=== PATIENT | male | born 2000 | race Caucasian/White ===

== ENCOUNTER 2020-07-26 09:20 | Emergency (ER) | payer BC, OTHER, SELFPAY ==
[2020-07-26] MEDS ORDERED: Ondansetron ODT 4 MG TAB ONE (09:48)
== END 2020-07-26 10:09 | disposition home or self-care (01) ==
LOC: BURERS 09:20
DX: R11.2 Nausea with vomiting, unspecified (principal); R09.89 Other specified symptoms and signs involving the circulatory and respiratory systems; R50.9 Fever, unspecified
CPT/HCPCS: 99283; Q0162